=== PATIENT | male | born 1995 | race American Indian/Alaskan Native ===

== ENCOUNTER 2018-05-30 20:07 | Emergency (ER) | payer BC, OTHER, SELFPAY ==
[2018-05-30 20:12] VITALS: BP 138/79; PULSE 83; RESP 22; O2SAT 97
--- NOTE | 2018-05-30 21:50 | ED.NEUROSD ---
HPI - Neuro Symptoms/Deficit General Chief Complaint: Neuro Symptoms/Deficit Stated Complaint: uncontrollable shaking,being treated neuro issue Time Seen by Provider: 05/30/18 21:49 Source: patient and family Mode of arrival: ambulatory Limitations: no limitations History of Present Illness HPI Narrative: Patient is an otherwise healthy 23-year-old male who states that 3 weeks ago he was at work when all of his symptoms started. He states that he felt like he was going to pass out. Had problems with word-finding issues. Went to [facility] because he was in [place] at the time. He states that in the emergency department he had a CT scan of his head and also an MRI of his head which he was told that everything was fine. He was told to follow up with Cardiology and Neurology. He is already followed up with Cardiology who stated that there was no acute issues. He is scheduled to follow up with Neurology in approximately 1 month from now. He states that over the past couple days he has had problems with his head shaking and also his hand shaking and occasionally his leg shaking. Has not tried anything for the symptoms prior to arrival he states that his word-finding issues have somewhat improved. On Anticoagulants: Yes (ASA 81 mg po daily since [facility] visit.) Related Data Home Medications Medication Instructions Recorded Confirmed aspirin 81 mg PO DAILY 05/30/18 05/30/18 Allergies Allergy/AdvReac Type Severity Reaction Status Date / Time No Known Drug Allergies Allergy Verified 05/30/18 20:18 Review of Systems Constitutional Denies fatigue and Denies fever(s) Eyes Denies change in vision ENT Ears, Nose, Mouth, and Throat: Denies dizziness Cardiovascular Denies chest pain and Denies dyspnea Respiratory Denies dyspnea Gastrointestinal Gastrointestinal: Denies abdominal pain Musculoskeletal Denies myalgias and Denies arthralgias Integumentary/Breasts Denies rash Neurologic Denies confusion, Denies dizziness and Reports convulsions Psychiatric Denies confusion Endocrine Denies fatigue Hematologic/Lymphatic Denies easy bleeding and Denies easy bruising Allergic/Immunologic Denies urticaria [facility] Medical History Healthy adult (Acute) Social History Smoking Status: Former smoker Social History Smoking Status: Former smoker Exam Initial Vital Signs Initial Vital Signs: Vital Signs Pulse Rate 83 05/30/18 20:12 Respiratory Rate 22 05/30/18 20:12 Blood Pressure 138/79 05/30/18 20:12 Pulse Oximetry 97 05/30/18 20:12 Const General: cooperative, well groomed and No acute distress Orientation: alert, awake and oriented x3 HENMT Head: normal to inspection and normocephalic Ears: hearing grossly normal bilaterally Resp Effort & Inspection: normal respiratory effort Auscultation: clear to auscultation bilaterally Cardio Rate: regular rate Rhythm: regular rhythm Skin Lesions: no lesions Rashes: no rashes Neuro General: alert, awake and oriented x3 Other: Patient shaking bilateral upper extremities and his hands. It is somewhat a clapping motion as well. Does have a occasional rhythmic shaking of his head. Also his lower extremities. All of these takes can be suppressed when he does activities. Extrem General: normal to inspection and capillary refill normal Psych Appearance: grossly normal and well kempt Course Orders Ordered: Discontinued Medications Lorazepam (Ativan) 1 mg PO NOW ONE Stop: 05/30/18 22:12 Last Admin: 05/30/18 22:35 Dose: 1 mg Vital Signs - 8 hr 05/30/18 20:12 05/30/18 23:30 Pulse Rate 83 73 Respiratory Rate 22 18 Blood Pressure 138/79 133/93 H Pulse Oximetry 97 97 MDM - Neuro Symptoms/Deficit MDM Narrative Medical decision making narrative: Patient states that he does not feel anxious. Was given Ativan here in the emergency department which she states may have helped his lower extremity shaking but not his hands. Did have an extensive workup a couple weeks ago to include a CT scan and an MRI. I have low suspicion for CVA. He has a follow-up with Neurology already scheduled. Informed the patient that he is at the point where Neurology needs to get involved. I doubt that this is an emergent issue. He is in here today because he was having some problems sleeping at night. I was hoping that the Ativan would improve his symptoms but it did not seem to be the case. Will hold on further workup for now. He will keep his scheduled Neurology appointment. He was given return precautions. He expressed understanding and agreement with plan. Discharge Plan Departure Patient Disposition: Home Clinical Impression: Tremor Discharge Date/Time: 05/30/18 23:31 Interventions: ED Discharge Assessment Last Done: 05/30/18 23:30 Activity Restrictions/Additional Instructions: I do recommend that you keep your appointment that she has scheduled with Neurology. Contact your primary care doctor for follow-up. Return to the emergency department for any new or worsening symptoms Prescriptions: No Action aspirin 81 mg Tablet,Chewable 81 mg PO DAILY RF: 0 Referrals: Parrish Bills MD [Physician] -
[2018-05-30] MEDS: LORazepam 1 MG TABLET PO (22:35)
--- NOTE | 2018-05-30 22:55 | ED_ITS ---
HPI - Neuro Symptoms/Deficit General Chief Complaint: Neuro Symptoms/Deficit Stated Complaint: uncontrollable shaking,being treated neuro issue Time Seen by Provider: 05/30/18 21:49 Source: patient and family Mode of arrival: ambulatory Limitations: no limitations History of Present Illness HPI Narrative: Patient is an otherwise healthy 23-year-old male who states that 3 weeks ago he was at work when all of his symptoms started. He states that he felt like he was going to pass out. Had problems with word-finding issues. Went to [facility] because he was in [place] at the time. He states that in the emergency department he had a CT scan of his head and also an MRI of his head which he was told that everything was fine. He was told to follow up with Cardiology and Neurology. He is already followed up with Cardiology who stated that there was no acute issues. He is scheduled to follow up with Neurology in approximately 1 month from now. He states that over the past couple days he has had problems with his head shaking and also his hand shaking and occasionally his leg shaking. Has not tried anything for the symptoms prior to arrival he states that his word-finding issues have somewhat improved. On Anticoagulants: Yes (ASA [address] [facility] visit.) Related Data Home Medications Medication Instructions Recorded Confirmed aspirin 81 mg PO DAILY 05/30/18 05/30/18 Allergies Allergy/AdvReac Type Severity Reaction Status Date / Time No Known Drug Allergies Allergy Verified 05/30/18 20:18 Review of Systems Constitutional Denies fatigue and Denies fever(s) Eyes Denies change in vision ENT Ears, Nose, Mouth, and Throat: Denies dizziness Cardiovascular Denies chest pain and Denies dyspnea Respiratory Denies dyspnea Gastrointestinal Gastrointestinal: Denies abdominal pain Musculoskeletal Denies myalgias and Denies arthralgias Integumentary/Breasts Denies rash Neurologic Denies confusion, Denies dizziness and Reports convulsions Psychiatric Denies confusion Endocrine Denies fatigue Hematologic/Lymphatic Denies easy bleeding and Denies easy bruising Allergic/Immunologic Denies urticaria [facility] Medical History Healthy adult (Acute) Social History Smoking Status: Former smoker Social History Smoking Status: Former smoker Exam Initial Vital Signs Initial Vital Signs: Vital Signs Pulse Rate 83 05/30/18 20:12 Respiratory Rate 22 05/30/18 20:12 Blood Pressure 138/79 05/30/18 20:12 Pulse Oximetry 97 05/30/18 20:12 Const General: cooperative, well groomed and No acute distress Orientation: alert, awake and oriented x3 HENMT Head: normal to inspection and normocephalic Ears: hearing grossly normal bilaterally Resp Effort & Inspection: normal respiratory effort Auscultation: clear to auscultation bilaterally Cardio Rate: regular rate Rhythm: regular rhythm Skin Lesions: no lesions Rashes: no rashes Neuro General: alert, awake and oriented x3 Other: Patient shaking bilateral upper extremities and his hands. It is somewhat a clapping motion as well. Does have a occasional rhythmic shaking of his head. Also his lower extremities. All of these takes can be suppressed when he does activities. Extrem General: normal to inspection and capillary refill normal Psych Appearance: grossly normal and well kempt Course Orders Ordered: Discontinued Medications Lorazepam (Ativan) 1 mg PO NOW ONE Stop: 05/30/18 22:12 Last Admin: 05/30/18 22:35 Dose: 1 mg Vital Signs - 8 hr 05/30/18 20:12 05/30/18 23:30 Pulse Rate 83 73 Respiratory Rate 22 18 Blood Pressure 138/79 133/93 H Pulse Oximetry 97 97 MDM - Neuro Symptoms/Deficit MDM Narrative Medical decision making narrative: Patient states that he does not feel anxious. Was given Ativan here in the emergency department which she states may have helped his lower extremity shaking but not his hands. Did have an extensive workup a couple weeks ago to include a CT scan and an MRI. I have low suspicion for CVA. He has a follow-up with Neurology already scheduled. Informed the patient that he is at the point where Neurology needs to get involved. I doubt that this is an emergent issue. He is in here today because he was having some problems sleeping at night. I was hoping that the Ativan would improve his symptoms but it did not seem to be the case. Will hold on further workup for now. He will keep his scheduled Neurology appointment. He was given return precautions. He expressed understanding and agreement with plan. Discharge Plan Departure Patient Disposition: Home Clinical Impression: Tremor Discharge Date/Time: 05/30/18 23:31 Interventions: ED Discharge Assessment Last Done: 05/30/18 23:30 Activity Restrictions/Additional Instructions: I do recommend that you keep your appointment that she has scheduled with Neurology. Contact your primary care doctor for follow-up. Return to the emergency department for any new or worsening symptoms Prescriptions: No Action aspirin 81 mg Tablet,Chewable 81 mg PO DAILY RF: 0 Referrals: Parrish Bills MD [Physician] -
[2018-05-30 23:30] VITALS: BP 133/93; PULSE 73; RESP 18; O2SAT 97
== END 2018-05-30 23:31 | disposition home or self-care (01) ==
PROVIDERS: Emergency Provider Emergency Medicine
DX: R25.1 Tremor, unspecified (principal); R55 Syncope and collapse
CPT/HCPCS: 99282; 99283; 99291

== ENCOUNTER → 2018-09-17 06:39 | Outpatient (CLI) | payer BC, OTHER, SELFPAY ==
--- NOTE | 2018-09-17 | DI.MRI.S_ITS ---
PROCEDURE: MR ANGIO HEAD WO CON INDICATIONS: New daily persistent headache (NDPH) TECHNIQUE: Noncontrast axial 3-D [id number] MR angiogram, with 3-dimensional maximum intensity projection (MIP) reformats of the internal carotid arteries and posterior circulation then performed. COMPARISON: None. FINDINGS: Image quality: Excellent. Anterior circulation: Intracranial internal carotid arteries demonstrate normal size and intraluminal flow signal. The flow within the paired anterior cerebral arteries is normal and symmetric. The flow within the middle cerebral arteries is normal and symmetric. The anterior communicating artery is seen. No stenoses, occlusions, or aneurysms. Posterior circulation: Visualized portions of the vertebral arteries demonstrate normal caliber, and join to form a normal appearing basilar artery. The flow within the posterior cerebral arteries is normal and symmetric. No stenoses, occlusions, or aneurysms. IMPRESSION: Normal examination, no evidence of aneurysm or vascular malformation. By this examination there is no area of arterial stenosis or occlusion. Dictated by: Tony Carter M.D. on 09/17/2018 at 9:22 Approved by: Tony Carter M.D. on 09/17/2018 at 9:23
== END ==
PROVIDERS: Visit Provider Psychiatry & Neurology Neurology
DX: G44.52 New daily persistent headache (NDPH) (principal)
CPT/HCPCS: 70544